=== PATIENT | female | born 1985 | race Caucasian/White ===

== ENCOUNTER 2021-07-26 19:35 | Emergency (ER) | payer BC ==
[~2021-07-26 19:35] MED LIST: OMNICEF 300 MG300 MG PO; TORADOL 10 MG T10 MG PO
[2021-07-26 20:23] LABS: HEMOGLOBIN 11.7 gm/dl (12.3-15.3); RED BLOOD COUNT 4.06 M/UL (4.00-5.10); WHITE BLOOD COUNT 9.2 K/UL (4.5-11.0)
[2021-07-26] MEDS ORDERED: ZOFRAN4 MG PO (23:58)
[2021-07-26] MEDS ORDERED: HYDROCODON-ACE1 EAC2 PO (23:58)
== END 2021-07-27 00:45 | disposition home or self-care (01) ==
LOC: ER1 19:35
DX: N13.2 Hydronephrosis with renal and ureteral calculous obstruction (principal)
CPT/HCPCS: 80053; 81001; 83690; 84703; 85025; 86140; 96374; 96375; 96376; 99284; J1170; J1885; J2405; J2550; J7030

== ENCOUNTER 2021-08-06 14:38 | Emergency (ER) | payer BC ==
[~2021-08-06 14:38] MED LIST changes: +HYDROCODON-ACE1 EAC2 PO; +ZOFRAN4 MG PO
[2021-08-06 15:56] LABS: HEMOGLOBIN 10.7 gm/dl (12.3-15.3); RED BLOOD COUNT 3.71 M/UL (4.00-5.10); WHITE BLOOD COUNT 7.3 K/UL (4.5-11.0)
== END 2021-08-06 20:20 | disposition short-term general hospital (02) ==
LOC: ER1 14:38
PROVIDERS: Student in an Organized Health Care Education/Training Program
DX: A41.9 Sepsis, unspecified organism (principal); N12 Tubulo-interstitial nephritis, not specified as acute or chronic; N17.9 Acute kidney failure, unspecified; Z90.49 Acquired absence of other specified parts of digestive tract; Z20.822 Contact with and (suspected) exposure to COVID-19
CPT/HCPCS: 71045; 80053; 81001; 83605; 83735; 84100; 84703; 85025; 87040; 87077; 87086; 87186; 96374; 96375; 99285; J0696; J1885; J2405; J7030; U0002